=== PATIENT | male | born 1975 | race Caucasian/White ===

== ENCOUNTER 2021-02-14 06:51 | Inpatient (IN) | payer OTHER, SELFPAY ==
[2021-02-14] MEDS ORDERED: Morphine 4 MG/ML VIAL ONE ×2 (07:21→10:23)
[2021-02-14] MEDS ORDERED: Piperacillin/Tazobactam 3.375 GM VIAL ONE (10:56)
[2021-02-14] MEDS ORDERED: Dextrose 5% in Water 1,000 ML IV PRN (14:20)
[2021-02-14] MEDS ORDERED: Dextrose 50% Abboject 50 ML SYRINGE SLOW IVP PRN (14:20)
[2021-02-14] MEDS ORDERED: Insulin Regular 300 UNITS/3 ML VIAL SC PRN ×2 (14:20)
[2021-02-14] MEDS ORDERED: Acetaminophen 325 MG TAB PO PRN (14:21)
[2021-02-14] MEDS ORDERED: Calcium Carbonate 500 MG ChewTAB PO PRN (14:21)
[2021-02-14] MEDS ORDERED: Senokot S 8.6-50 MG TAB PO PRN (14:21)
[2021-02-14] MEDS ORDERED: Ondansetron ODT 4 MG TAB PO PRN (14:21)
[2021-02-14] MEDS ORDERED: Ondansetron PF 4 MG/2 ML Vial IVP PRN (14:21)
[2021-02-14] MEDS: Morphine 2 MG/ML VIAL SLOW IVP PRN ×2 (16:04→20:36)
[2021-02-14] MEDS: Piperacillin/Tazobactam 3.375 GM in Sodium Chloride 0.9% 100 ML IVPB SCH ×2 (16:05→20:42)
[2021-02-14 18:16] VITALS: BMI 21.0
[2021-02-14] MEDS: Sodium Chloride 0.9% 1,000 ML IV SCH ×2 (20:36→23:25)
[2021-02-14] MEDS: Heparin 5,000 UNITS/ML VIAL SC SCH (20:38)
[2021-02-14] MEDS: Pantoprazole 40 MG VIAL IVP SCH (20:39)
[2021-02-14 23:30] LABS: SARS-CoV-2 PCR by NAA Not Detected (NotDetected)
[2021-02-15] MEDS: Morphine 2 MG/ML VIAL SLOW IVP PRN ×3 (00:42→09:33)
[2021-02-15] MEDS: Sodium Chloride 0.9% 1,000 ML IV SCH ×4 (02:54→20:52)
[2021-02-15] MEDS: Piperacillin/Tazobactam 3.375 GM in Sodium Chloride 0.9% 100 ML IVPB SCH ×4 (04:25→20:52)
[2021-02-15 05:45] LABS: ALT (SGPT) 10 U/L (8-55); AST (SGOT) 15 U/L (5-34); Albumin 2.8 g/dL (3.5-5.0); Alkaline Phosphatase 109 U/L (40-110); Anion Gap 14 mmol/L (10-20); BUN (Urea Nitrogen) 8 mg/dL (8.9-20.6); Bilirubin, Total 0.3 mg/dL (0.2-1.2); CRP (Inflammatory) 22.88 mg/dL (= or < 0.5); Calc. Creatinine Clearance 84 mL/min (70-130); Carbon Dioxide 20 mmol/L (22-29); Chloride 101 mmol/L (98-107); Globulin 3.5 g/dL (2.4-3.5); Glucose 211 mg/dL (70-105); Lipase 207 U/L (8-78); Magnesium 1.4 mg/dL (1.6-2.6); Phosphorus 2.5 mg/dL (2.3-4.7); Potassium 4.1 mmol/L (3.5-5.1); Protein, Total 6.3 g/dL (6.0-8.3); Sodium 131 mmol/L (136-145)
[2021-02-15 06:01] LABS: #Eosinphils 0.2 thou/uL (0.0-0.7); #Lymphocytes 1.3 thou/uL (1.20-3.40); #Monocytes 1.3 thou/uL (0.11-0.59); #Neutrophils 12.7 thou/uL (1.40-6.50); %Basophils 0.1 % (0.0-1.0); %Eosinophils 1.4 % (0.0-10.0); %Lymphocytes 8.2 % (21.0-51.0); %Monocytes 8.6 % (0.0-10.0); %Neutrophils 81.7 % (42.0-75.0); Hemoglobin 11.1 g/dL (14.0-18.0); Hypochromia SLIGHT = 6-15 cells (100X) (0-5/hpf); MDiff Complete? YES; Mean Corpuscular HGB CONC 29.5 g/dL (32.0-36.0); Mean Corpuscular Hemoglobin 22.2 pg (27.0-31.0); Mean Corpuscular Volume 75.3 fL (78.0-98.0); Mean Platelet Volume 7.2 fL (7.4-10.4); Microcytosis SLIGHT = 6-15 cells (100X) (0-5/hpf); Platelet Count 513 thou/uL (130-400); Platelet Morphology Comment Appears Increased; RBC Distribution Width 16.7 % (11.5-14.5); White Blood Cell (WBC) Count 15.5 thou/uL (4.8-10.8)
[2021-02-15] MEDS: Heparin 5,000 UNITS/ML VIAL SC SCH ×2 (08:16→20:52)
[2021-02-15] MEDS: Morphine 4 MG/ML VIAL SLOW IVP PRN ×3 (13:33→21:37)
[2021-02-15] MEDS: Pantoprazole 40 MG VIAL IVP SCH (20:52)
[2021-02-16] MEDS: Sodium Chloride 0.9% 1,000 ML IV SCH ×3 (00:15→20:14)
[2021-02-16] MEDS: Morphine 4 MG/ML VIAL SLOW IVP PRN ×6 (01:28→22:20)
[2021-02-16] MEDS: Piperacillin/Tazobactam 3.375 GM in Sodium Chloride 0.9% 100 ML IVPB SCH ×4 (03:56→18:19)
[2021-02-16 06:25] LABS: Hemoglobin 10.7 g/dL (14.0-18.0); Mean Corpuscular Hemoglobin 22.3 pg (27.0-31.0); Mean Corpuscular Volume 74.5 fL (78.0-98.0); Platelet Count 539 thou/uL (130-400); RBC Distribution Width 16.7 % (11.5-14.5); Red Blood Cell (RBC) Count 4.78 mill/uL (4.70-6.10); White Blood Cell (WBC) Count 17.3 thou/uL (4.8-10.8)
[2021-02-16 06:34] LABS: ALT (SGPT) 10 U/L (8-55)
[2021-02-16 06:36] LABS: AST (SGOT) 14 U/L (5-34); Albumin 2.8 g/dL (3.5-5.0); Alkaline Phosphatase 130 U/L (40-110); Anion Gap 13 mmol/L (10-20); BUN (Urea Nitrogen) 7 mg/dL (8.9-20.6); Bilirubin, Total 0.4 mg/dL (0.2-1.2); Calc. Creatinine Clearance 96 mL/min (70-130); Calcium 9.7 mg/dL (7.8-10.44); Carbon Dioxide 22 mmol/L (22-29); Chloride 100 mmol/L (98-107); Globulin 3.4 g/dL (2.4-3.5); Glucose 81 mg/dL (70-105); Lipase 138 U/L (8-78); Magnesium 1.4 mg/dL (1.6-2.6); Phosphorus 1.9 mg/dL (2.3-4.7); Potassium 3.6 mmol/L (3.5-5.1); Protein, Total 6.2 g/dL (6.0-8.3); Sodium 131 mmol/L (136-145)
[2021-02-16 06:44] LABS: #Eosinphils 0.2 thou/uL (0.0-0.7); #Lymphocytes 1.4 thou/uL (1.20-3.40); #Neutrophils 13.8 thou/uL (1.40-6.50); %Eosinophils 1.2 % (0.0-10.0); %Lymphocytes 8.1 % (21.0-51.0); %Monocytes 11.4 % (0.0-10.0); %Neutrophils 79.3 % (42.0-75.0); Elliptocytes SLIGHT = 2-5 cells (100X) (0-1/hpf); MDiff Complete? YES; Microcytosis SLIGHT = 6-15 cells (100X) (0-5/hpf)
[2021-02-16] MEDS ORDERED: Electrolyte Replacement Protocol 1 EACH FS SCH (06:45)
[2021-02-16] MEDS ORDERED: Magnesium 2 GM/50 ML 2 GM in Premix Bag 1 BAG IVPB SCH (07:00)
[2021-02-16] MEDS ORDERED: Magnesium Sulfate 4 GM in Sodium Chloride 0.9% 250 ML 250 ML IVPB SCH (07:15)
[2021-02-16] MEDS ORDERED: Potassium Phosphate 15 MMOL in Sodium Chloride 0.9% 100 ML IVPB SCH (07:15)
[2021-02-16] MEDS: Heparin 5,000 UNITS/ML VIAL SC SCH ×2 (08:58→20:15)
[2021-02-16] MEDS ORDERED: Lidocaine 1% PF 5 ML VIAL ONE (10:45)
[2021-02-16] MEDS ORDERED: Sodium Bicarbonate 2.5 MEQ/5 ML VIAL ONE (10:45)
[2021-02-16 13:11] LABS: BF Color Brown; Body Fluid Source Abscess Fluid; Clarity Cloudy/Turbid (Clear); Tube # EDTA
[2021-02-16] MEDS: Pantoprazole 40 MG VIAL IVP SCH (20:15)
[2021-02-17] MEDS: Piperacillin/Tazobactam 3.375 GM in Sodium Chloride 0.9% 100 ML IVPB SCH ×5 (00:42→23:29)
[2021-02-17] MEDS: Sodium Chloride 0.9% 1,000 ML IV SCH ×4 (00:45→20:44)
[2021-02-17] MEDS: Morphine 4 MG/ML VIAL SLOW IVP PRN ×6 (02:24→22:37)
[2021-02-17] MEDS: Heparin 5,000 UNITS/ML VIAL SC SCH ×2 (08:01→20:43)
[2021-02-17] MEDS: Pantoprazole 40 MG VIAL IVP SCH (20:44)
[2021-02-18] MEDS: Morphine 4 MG/ML VIAL SLOW IVP PRN ×4 (02:40→14:38)
[2021-02-18] MEDS: Sodium Chloride 0.9% 1,000 ML IV SCH ×2 (05:49→12:40)
[2021-02-18] MEDS: Piperacillin/Tazobactam 3.375 GM in Sodium Chloride 0.9% 100 ML IVPB SCH ×2 (05:51→12:38)
[2021-02-18 06:20] LABS: #Eosinphils 0.3 thou/uL (0.0-0.7); #Lymphocytes 1.2 thou/uL (1.20-3.40); #Monocytes 1.7 thou/uL (0.11-0.59); #Neutrophils 11.3 thou/uL (1.40-6.50); %Basophils 0.1 % (0.0-1.0); %Eosinophils 2.1 % (0.0-10.0); %Lymphocytes 7.9 % (21.0-51.0); %Monocytes 11.9 % (0.0-10.0); %Neutrophils 77.9 % (42.0-75.0); Hemoglobin 9.9 g/dL (14.0-18.0); Mean Corpuscular HGB CONC 30.9 g/dL (32.0-36.0); Mean Corpuscular Hemoglobin 23.1 pg (27.0-31.0); Mean Corpuscular Volume 74.8 fL (78.0-98.0); Mean Platelet Volume 6.3 fL (7.4-10.4); Platelet Count 616 thou/uL (130-400); RBC Distribution Width 16.1 % (11.5-14.5); Red Blood Cell (RBC) Count 4.28 mill/uL (4.70-6.10); White Blood Cell (WBC) Count 14.5 thou/uL (4.8-10.8)
[2021-02-18 06:41] LABS: ALT (SGPT) 11 U/L (8-55); AST (SGOT) 18 U/L (5-34); Albumin 2.4 g/dL (3.5-5.0); Alkaline Phosphatase 115 U/L (40-110); Anion Gap 10 mmol/L (10-20); BUN (Urea Nitrogen) Less than 4 mg/dL (8.9-20.6); Bilirubin, Total 0.3 mg/dL (0.2-1.2); Calc. Creatinine Clearance 110 mL/min (70-130); Calcium 9.5 mg/dL (7.8-10.44); Carbon Dioxide 24 mmol/L (22-29); Chloride 103 mmol/L (98-107); Globulin 3.3 g/dL (2.4-3.5); Glucose 95 mg/dL (70-105); Potassium 3.1 mmol/L (3.5-5.1); Protein, Total 5.7 g/dL (6.0-8.3); Sodium 134 mmol/L (136-145)
[2021-02-18] MEDS: Potassium Chloride 20 MEQ in Premix Bag 1 BAG IVPB SCH ×2 (07:10→10:30)
[2021-02-18] MEDS: Heparin 5,000 UNITS/ML VIAL SC SCH (08:15)
[2021-02-18] MEDS ORDERED: Iopamidol 370 76% 50 ML VIAL FS ONE (10:07)
[2021-02-18] MEDS ORDERED: Iopamidol-370 76% 500 ML 1 ML ONE (10:07)
[2021-02-18 16:07] VITALS: BP 155/90; TEMP 98.2
[2021-02-18 23:07] LABS: Lipase-Fluid 33180 U/L (.)
== END 2021-02-18 16:04 | disposition short-term general hospital (02) | DRG 439 ==
LOC: ERS 06:51 → T4-B 12:39
PROVIDERS: ADMIT Internal Medicine; ATTEND Internal Medicine
PROC: 0F9G3ZX Drainage of Pancreas, Percutaneous Approach, Diagnostic (ICD-10-PCS; principal; 2021-02-16)
DX: K85.90 Acute pancreatitis without necrosis or infection, unspecified (principal); I69.351 Hemiplegia and hemiparesis following cerebral infarction affecting right dominant side; K76.6 Portal hypertension; K86.3 Pseudocyst of pancreas; K86.1 Other chronic pancreatitis; E11.9 Type 2 diabetes mellitus without complications; Z20.822 Contact with and (suspected) exposure to COVID-19; K21.9 Gastro-esophageal reflux disease without esophagitis; Z79.84 Long term (current) use of oral hypoglycemic drugs; Z79.899 Other long term (current) drug therapy
CPT/HCPCS: 36415; 36416; 74170; 76942; 80053; 83690; 83735; 84100; 85025; 85060; 86140; 87070; 87077; 87186; 87205; 88112; 89051; 96365; 96375; 96376; C9113; J1644; J2270; J2543; J3475; J3480; J3490; J7050; Q9967; U0003; U0005